=== PATIENT | male | born 1960 | race Caucasian/White ===

== ENCOUNTER → 2017-08-01 | Outpatient (CLI) | payer OTHER ==
[~2017-08-01] MED LIST: IOPAMIDOL (ISOVUE-300) 100 ML BTL ONE
== END ==
LOC: CIMAGING 08:18
PROVIDERS: ATTEND Family Medicine
DX: Z03.89 Encounter for observation for other suspected diseases and conditions ruled out (principal); M51.36 Other intervertebral disc degeneration, lumbar region; M41.84 Other forms of scoliosis, thoracic region
CPT/HCPCS: 71260-PO; Q9967